=== PATIENT | male | born 1955 | race Caucasian/White ===

== ENCOUNTER 2019-12-20 02:09 | Emergency (ER) | payer MEDICARE, OTHER ==
[~2019-12-20] VITALS: Ht 180.3 cm; Wt 90.7 kg
[~2019-12-20 02:09] MED LIST: ADULT LOW DOSE81 MG PO; AMBROTOSE; ATIVAN1 MG PO; CENTRUM SILVER1 EAC1 PO; FISH OIL; GLUCOSAMINE; IBUPROFEN; MELATONIN3 MG PO; PERCOCET 7.5-31 EACH PO; REMERON15 M2 PO; SERTRALINE HCL100 MG PO; SUMYCIN 500500 MG PO; TRAZODONE 50 MG50 MG OR; [UNRECOGNIZED DRUG - OTHER]
[2019-12-20] MEDS ORDERED: XANAX 0.5 MG0.5 MG PO (02:21)
[2019-12-20] MEDS ORDERED: ADDERALL 10 MG10 MG PO (02:22)
[2019-12-20] MEDS ORDERED: CEFDINIR300 MG PO (02:22)
[2019-12-20] MEDS ORDERED: PREDNISONE50 MG PO (04:02)
[2019-12-20 04:10] VITALS: BP 138/79
== END 2019-12-20 04:11 | disposition still patient (30) ==
LOC: M.ERS 02:09
DX: K13.0 Diseases of lips (principal); T39.395A Adverse effect of other nonsteroidal anti-inflammatory drugs [NSAID], initial encounter; F17.210 Nicotine dependence, cigarettes, uncomplicated; Y92.89 Other specified places as the place of occurrence of the external cause